=== PATIENT | male | born 1990 | race Caucasian/White ===

== ENCOUNTER 2020-12-11 15:55 | Outpatient (REF) | payer MEDICAID, SELFPAY | END 2020-12-11 15:56 | disposition home or self-care (01) | LOC: HO.LAB 15:55 | PROVIDERS: Visit Provider Internal Medicine | DX: Z20.822 Contact with and (suspected) exposure to COVID-19 (principal) | CPT/HCPCS: 36415; C9803; U0003; U0005 ==

== ENCOUNTER 2021-11-26 14:14 | Outpatient (REF) | payer MEDICAID, SELFPAY ==
[2021-11-26 14:36] LABS: Binax Internal Control QC Valid; Binax Now Covid-19 Ag Negative (Negative)
== END 2021-11-26 14:15 | disposition home or self-care (01) ==
LOC: HO.LAB 14:14
PROVIDERS: Visit Provider Internal Medicine
DX: Z20.822 Contact with and (suspected) exposure to COVID-19 (principal)
CPT/HCPCS: C9803

== ENCOUNTER 2022-03-19 15:03 | Outpatient (REF) | payer MEDICAID, SELFPAY ==
--- NOTE | ~2022-03-19 | XR_ITS ---
EXAMINATION: XR LUMBOSACRAL SPINE CLINICAL INFORMATION: No back pain COMPARISON: None TECHNIQUE: Three views of the lumbosacral spine. FINDINGS: There is normal lumbar lordosis. The vertebral heights, alignment and disc heights are normal. No visible acute fracture, dislocation or subluxation seen no lytic or sclerotic process seen. The paravertebral soft tissues are normal. The SI joints are symmetrical. XR/XR lumbar spine 2-3V IMPRESSION: Unremarkable chest exam.
[2022-03-19 15:26] LABS: MANUAL DIFF FLAG NO
[2022-03-19 15:41] LABS: Basophils Absolute Auto 0.1 X10*3/uL (0.0-0.2); Basophils Percent Auto 0.7 % (0-2); Eosinophils Absolute Auto 0.4 X10*3/uL (0.0-0.4); Eosinophils Percent Auto 4.1 % (0-4); Hematocrit 39.2 % (42.0-52.0); Hemoglobin 13.6 g/dl (14.0-18.0); Imm Gran Abs Auto 0.04 X10*3/uL (0.00-0.03); Imm Gran Pct Auto 0.4 % (0.0-0.4); Lymphocytes Absolute Auto 3.1 X10*3/uL (1.2-4.9); Mean Corpuscular HGB Conc 34.7 g/dl (31.0-36.0); Mean Corpuscular Hemoglobin 29.5 pg (27.0-33.0); Mean Platelet Volume 9.5 fL (9.4-12.4); Monocytes Absolute Auto 0.9 X10*3/uL (0.1-1.2); Monocytes Percent Auto 8.6 % (2-11); Neutrophils Absolute Auto 5.5 x10*3/uL (2.0-8.3); Neutrophils Percent Auto 55.2 % (45-73); Platelet Count 245 X10*3/uL (160-400); Red Blood Count 4.61 X10*6/uL (4.60-5.80); Red Cell Distribution Width 12.9 % (11.0-16.0); White Blood Count 9.9 X10*3/uL (4.8-10.8)
[2022-03-19 16:12] LABS: Alanine Aminotransferase 36 U/L (0-40); Albumin Level 4.3 g/dL (3.5-5.0); Alkaline Phosphatase 86 U/L (39-117); Anion Gap 12 (12-20); Aspartate Amino Transferase 23 U/L (5-37); Bilirubin Direct < 0.2 mg/dL (0.0-0.5); Bilirubin Total 0.4 mg/dL (0.0-1.0); Blood Urea Nitrogen 14 mg/dL (9-16); Calcium 9.9 mg/dL (8.4-10.2); Carbon Dioxide 26 mmol/L (22-29); Chloride 107 mmol/L (96-108); Cholesterol 196 mg/dL; Estimated Glomerular Filt Rate > 60; Glucose Random 82 mg/dL (60-115); HDL Cholesterol 31 mg/dL; LDL Cholesterol Calculated 137 mg/dl; Potassium 4.8 mmol/L (3.3-5.1); Sodium 140 mmol/L (135-145); Total Protein 7.6 g/dL (6.5-8.0); Triglycerides 142 mg/dL
[2022-03-20 07:47] LABS: ~HepC Num1 0.08 S/CO (0.00-0.79); ~Hepatitis C Antibody Nonreactive (Nonreactive)
[2022-03-20 08:00] LABS: Hepatitis A Antibody IgG Nonreactive (Nonreactive); ~Hepatitis A Antibody IgG 0.36 S/CO (0.00-0.99)
[2022-03-20 09:46] LABS: HBS Num1 > 1000.00 mIU/mL (0-7.99); HIV AB/AG Nonreactive (Nonreactive); HIV Num 1 0.06 S/CO (0.00-0.99); Hepatitis B Surface Antigen Negative (Negative); ~Hepatitis B Surface Antibody REACTIVE (Nonreactive)
[2022-03-20 10:33] LABS: CT PCR NOT DETECTED (Not Detect.); NG PCR NOT DETECTED (Not Detect.)
[2022-03-20 12:47] LABS: Syphilis Screen Nonreactive (Nonreactive)
== END 2022-03-19 15:04 | disposition home or self-care (01) ==
LOC: HO.LAB 15:03
PROVIDERS: PCP Internal Medicine Geriatric Medicine; Visit Provider Internal Medicine Geriatric Medicine
DX: Z00.00 Encounter for general adult medical examination without abnormal findings (principal); Z11.4 Encounter for screening for human immunodeficiency virus [HIV]; Z11.3 Encounter for screening for infections with a predominantly sexual mode of transmission; Z13.1 Encounter for screening for diabetes mellitus; Z13.220 Encounter for screening for lipoid disorders; F19.10 Other psychoactive substance abuse, uncomplicated; M54.50 Low back pain, unspecified
CPT/HCPCS: 72100; 80048; 80061; 80076; 85025; 86706; 86708; 86780; 86803; 87340; 87389; 87491; 87591

== ENCOUNTER 2022-07-02 15:58 | Outpatient (REF) | payer MEDICAID, SELFPAY ==
[2022-07-02 17:10] LABS: Hematocrit 39.4 % (42.0-52.0); Hemoglobin 13.7 g/dl (14.0-18.0); Mean Corpuscular HGB Conc 34.8 g/dl (31.0-36.0); Mean Corpuscular Hemoglobin 29.5 pg (27.0-33.0); Mean Corpuscular Volume 84.9 fL (80.0-98.0); Mean Platelet Volume 9.4 fL (9.4-12.4); Platelet Count 273 X10*3/uL (160-400); Red Blood Count 4.64 X10*6/uL (4.60-5.80); White Blood Count 10.1 X10*3/uL (4.8-10.8)
[2022-07-02 17:33] LABS: Alanine Aminotransferase 49 U/L (0-40); Albumin Level 4.5 g/dL (3.5-5.0); Alkaline Phosphatase 93 U/L (39-117); Anion Gap 13 (12-20); Aspartate Amino Transferase 21 U/L (5-37); Bilirubin Total 0.3 mg/dL (0.0-1.0); Blood Urea Nitrogen 15 mg/dL (9-16); Calcium 9.5 mg/dL (8.4-10.2); Carbon Dioxide 27 mmol/L (22-29); Chloride 106 mmol/L (96-108); Estimated Glomerular Filt Rate > 60; Glucose Random 134 mg/dL (60-115); Iron 50 mcg/dL (45-160); Percent Iron Saturation 13 % (15-50); Potassium 4.2 mmol/L (3.3-5.1); Sodium 142 mmol/L (135-145); Total Iron Binding Capacity 377 mcg/dL (228-428); Total Protein 7.4 g/dL (6.5-8.0); Unsaturated Iron Binding 327 ug/dL
[2022-07-02 17:54] LABS: Ferritin 73 ng/mL (20-250)
[2022-07-03 06:10] LABS: Folate 16.8 ng/mL (> or = 4.0); Vitamin B12 1199 pg/mL (200-900)
== END 2022-07-02 15:59 | disposition home or self-care (01) ==
LOC: HO.LAB 15:58
PROVIDERS: PCP Internal Medicine Geriatric Medicine; Visit Provider Internal Medicine Geriatric Medicine
DX: B35.1 Tinea unguium (principal); B35.3 Tinea pedis; D64.9 Anemia, unspecified
CPT/HCPCS: 36415; 80053; 82607; 82728; 82746; 83540; 85027

== ENCOUNTER 2024-03-23 14:51 | Outpatient (REF) | payer MEDICAID, SELFPAY ==
[2024-03-23 16:19] LABS: MANUAL DIFF FLAG NO
[2024-03-23 16:23] LABS: Basophils Absolute Auto 0.1 X10*3/uL (0.0-0.2); Basophils Percent Auto 0.7 % (0-2); Eosinophils Absolute Auto 0.4 X10*3/uL (0.0-0.4); Eosinophils Percent Auto 3.4 % (0-4); Hematocrit 41.3 % (42.0-52.0); Hemoglobin 14.5 g/dl (14.0-18.0); Imm Gran Abs Auto 0.06 X10*3/uL (0.00-0.03); Imm Gran Pct Auto 0.5 % (0.0-0.4); Lymphocytes Absolute Auto 3.5 X10*3/uL (1.2-4.9); Lymphocytes Percent Auto 28.8 % (20-40); Mean Corpuscular HGB Conc 35.1 g/dl (31.0-36.0); Mean Corpuscular Hemoglobin 29.8 pg (27.0-33.0); Mean Corpuscular Volume 84.8 fL (80.0-98.0); Mean Platelet Volume 9.3 fL (9.4-12.4); Monocytes Absolute Auto 0.9 X10*3/uL (0.1-1.2); Monocytes Percent Auto 7.8 % (2-11); Neutrophils Absolute Auto 7.1 x10*3/uL (2.0-8.3); Neutrophils Percent Auto 58.8 % (45-73); Platelet Count 294 X10*3/uL (160-400); Red Blood Count 4.87 X10*6/uL (4.60-5.80); Red Cell Distribution Width 12.9 % (11.0-16.0); White Blood Count 12.1 X10*3/uL (4.8-10.8)
[2024-03-23 17:25] LABS: Alanine Aminotransferase 28 U/L (0-40); Albumin Level 4.4 g/dL (3.5-5.0); Alkaline Phosphatase 85 U/L (39-117); Anion Gap 14 (12-20); Aspartate Amino Transferase 20 U/L (5-37); Bilirubin Total 0.3 mg/dL (0.0-1.0); Blood Urea Nitrogen 14 mg/dL (9-16); Calcium 9.9 mg/dL (8.4-10.2); Carbon Dioxide 25 mmol/L (22-29); Chloride 107 mmol/L (96-108); Estimated Glomerular Filt Rate > 60; Glucose Random 82 mg/dL (60-115); Sodium 142 mmol/L (135-145); Total Protein 7.6 g/dL (6.5-8.0)
[2024-03-24 08:20] LABS: HIV AB/AG Nonreactive (Nonreactive); HIV Num 1 0.05 S/CO (0.00-0.99); ~HepC Num1 0.28 S/CO (0.00-0.79); ~Hepatitis C Antibody Nonreactive (Nonreactive)
[2024-03-24 11:33] LABS: RPR Rapid Plasma Reagin NON-REACTIVE (NON-REACTIVE)
== END 2024-03-23 14:52 | disposition home or self-care (01) ==
LOC: HO.HHCL 14:51
PROVIDERS: Visit Provider Internal Medicine Geriatric Medicine
DX: Z00.00 Encounter for general adult medical examination without abnormal findings (principal); Z11.3 Encounter for screening for infections with a predominantly sexual mode of transmission
CPT/HCPCS: 36415; 80053; 85025; 86592; 86803; 87389

== ENCOUNTER 2024-03-25 17:14 | Emergency (ER) | payer MEDICAID, SELFPAY ==
--- NOTE | 2024-03-25 | ECG_ITS ---
Test Reason : CP Blood Pressure : / mmHG Vent. Rate : 101 BPM Atrial Rate : 101 BPM P-R Int : 148 ms QRS Dur : 084 ms QT Int : 316 ms P-R-T Axes : 066 019 009 degrees QTc Int : 409 ms Sinus tachycardia Otherwise normal ECG When compared with ECG of 24-FEB-2018 19:12, No significant change was found Referred By: Generic ED Physician Electronically Signed By:Salvatore Walker
--- NOTE | ~2024-03-25 | XR_ITS ---
EXAMINATION: XR CHEST CLINICAL INFORMATION: Chest pain. Cough. COMPARISON: Chest radiograph dated 06/13/2020. TECHNIQUE: 2 views of the chest were obtained. FINDINGS: The trachea is in normal anatomic position. The heart is normal in size. There is no pleural effusion. No pneumothorax. No consolidation. No acute osseous abnormality. XR/XR chest 2V IMPRESSION: No acute cardiopulmonary disease.
[2024-03-25 17:23] VITALS: BP 120/73; PULSE 96; RESP 18; TEMP 36.6; O2SAT 99; BMI 28.5
--- NOTE | 2024-03-25 17:23 | ED_ITS ---
HPI - General Adult General Chief complaint: Upper Respiratory Symptoms Stated complaint: N/V/D, chest pain, dry cough Time Seen by Provider: 03/25/24 18:11 Source: patient Mode of arrival: ambulatory Limitations: no limitations History of Present Illness ED Provider: Beatriz Santizo PA-C HPI narrative: 34-year-old male with no significant medical history presents the ER for evaluation of 2 days of feeling unwell. Patient reports that 2 days ago he started with a dry cough, fever, chills. He states yesterday he started having worsening cough associated with diffuse chest pains. He started vomiting. He is also having loose stools. No abdominal pain. He was able to tolerate soup today. He states has ongoing cough and chest discomfort. No known sick contacts at home. Denies any lower extremity swelling. MD complaint: Chest pain, cough, vomiting Onset (ago): day(s) (2) Location: head, chest and abdomen Radiation: non-radiation Severity: moderate Quality: aching Pain Consistency: intermittent Relieving factors: none Associated symptoms: chest pain, cough, fever/chills, headaches, loss of appetite, malaise, nausea/vomiting and weakness Treatments prior to arrival: none Related Data Previous Rx's ?Medication ?Instructions ?Recorded hydrocodone-homatropine 5 mg-1.5 5 ml PO Q6H PRN cough #60 mL 03/25/24 mg/5 mL (5 mL) oral syrup (Hycodan) ibuprofen 600 mg tablet 600 mg PO Q8H PRN fever or pain 03/25/24 #14 tabs Allergies Allergy/AdvReac Type Severity Reaction Status Date / Time No Known Allergies Allergy Verified 03/25/24 17:26 Review of Systems 2 Review of Systems: Yes all other systems are reviewed and are negative [facility] Social History Social History Advance Directives: No Advance Directives Information Provided: No Do you have a plan to hurt others: No Plan Physical Exam ED Vital Signs: Vital Signs - 24 hr 03/25/24 17:23 03/25/24 18:56 03/25/24 18:59 Temperature 97.9 F 98.5 F 98.5 F Pulse Rate 96 84 84 Respiratory Rate 18 16 16 Blood Pressure 120/73 136/86 136/86 Pulse Oximetry 99 99 99 Oxygen Delivery Method Room Air Room Air Room Air BMI result Body Mass Index 28.5 Appearance: Alert. Oriented X3. No acute distress. Head: normocephalic, atraumatic. Eyes: Pupils equal, round and reactive to light. ENT: Pharynx normal. No tonsillar swelling or exudate. Neck: Normal inspection. Neck supple. CVS: Normal heart rate and rhythm. Pulses normal. Respiratory: No respiratory distress. Breath sounds normal. Abdomen: Soft and nontender. +BS x4 Skin: Skin warm and dry. Normal skin color. Normal skin turgor. No rashes. Extremities: No lower extremity edema. No joint swelling. Neuro/psych: Oriented X 3. No motor deficit. No sensory deficit. CN II-XII intact. Normal speech and cognition. Course Course Course Narrative: This is a Rapid Medical Examination (RME) performed by Lj Ferrari PA-C in triage. Full HPI, ROS, assessment and treatment plan per primary provider in the Main ED. 34 yo male here for eval of N/V/D, chest pain, dry cough, subjective fever, chills x2 days. no known sick contacts. lungs clear. well appearing. rrr. Plan: labs, trop, ekg, cxr, viral serology ordered Medications Administered Discontinued Medications Generic Name Dose Route Start Last Admin Trade Name Freq PRN Reason Stop Dose Admin Acetaminophen 975 mg 03/25/24 18:38 03/25/24 18:48 Acetaminophen 325 Mg Tablet PO 03/25/24 18:39 975 mg ONCE ONE Administration Guaifenesin/Codeine Phosphate 10 ml 03/25/24 18:38 03/25/24 18:48 Guaifen/Codeine Sf 200/20/10ml 10 Ml Liquid PO 03/25/24 18:39 10 ml ONCE ONE Administration Ketorolac Tromethamine 30 mg 03/25/24 18:38 03/25/24 18:48 Ketorolac Tromethamine 30 Mg/Ml Vial IM 03/25/24 18:39 30 mg ONCE ONE Administration Procedures Smoking Cessation Time Spent Discussing Smoking Cessation w/Patient (min): 4 Patient Acknowledges Need for Cessation: Yes Additional Comments: discussed patches and gum. patient will try patches. does not want to try other oral meds, he will f/u with his PCP if he decides he wants medication to assist in smoking cessation Medical Decision Making Medical Decision Making MDM Narrative: 34-year-old male presents to the ER for evaluation of dry cough with associated chest pains, chills, fever, nausea and vomiting for the last 2 days. On arrival to the ER patient's vital signs are stable. His physical exam is benign. He has a mild leukocytosis on lab work, likely due to vomiting. Has not vomited since this morning. His abdominal exam is benign in his lungs are clear. His viral studies are negative for COVID, flu, RSV. His chest x-ray is clear, no evidence of pneumonia. EKG with sinus tachycardia, no ischemic changes. Doubt cardiac etiology. Chest pain is most likely musculoskeletal due to coughing. Patient was given Toradol and cough syrup here. At this time he is stable for discharge home with supportive care for likely viral infection. Patient expressed understanding and is stable for discharge home Differential Diagnosis Differential Diagnoses: The differential diagnosis associated with the presentation includes COVID, flu, RSV, pneumonia, viral gastroenteritis, viral syndrome, doubt cardiac etiology of his chest pain Lab Data [facility] Lab Attestation statement: I reviewed the patient's lab results. mild leukocytosis, no major metabolic derangement 03/25/24 17:33 03/25/24 17:33 Labs: Lab Results 03/25/24 Range/Units 17:33 WBC 11.9 H (4.8-10.8) X10*3/uL RBC 4.87 (4.60-5.80) X10*6/uL Hgb 14.8 (14.0-18.0) g/dl Hct 41.1 L (42.0-52.0) % MCV 84.4 (80.0-98.0) fL MCH 30.4 (27.0-33.0) pg MCHC 36.0 (31.0-36.0) g/dl RDW 12.7 (11.0-16.0) % Plt Count 244 (160-400) X10*3/uL MPV 8.8 L (9.4-12.4) fL Immature Gran % (Auto) 0.4 (0.0-0.4) % Neut % (Auto) 56.6 (45-73) % Lymph % (Auto) 25.1 (20-40) % Mcculloch % (Auto) 12.0 H (2-11) % Eos % (Auto) 5.2 H (0-4) % Baso % (Auto) 0.7 (0-2) % Lymph # (Auto) 3.0 (1.2-4.9) X10*3/uL Mcculloch # (Auto) 1.4 H (0.1-1.2) X10*3/uL Eos # (Auto) 0.6 H (0.0-0.4) X10*3/uL Baso # (Auto) 0.1 (0.0-0.2) X10*3/uL Abs Immat Gran (auto) 0.05 H (0.00-0.03) X10*3/uL Absolute Neuts (auto) 6.7 (2.0-8.3) x10*3/uL Absolute Nucleated RBC 0.000 (0.0-0.012) X10*3/uL Nucleated RBC % (auto) 0.0 (0.0-0.2) /100WBC Sodium 140 (135-145) mmol/L Potassium 3.8 (3.3-5.1) mmol/L Chloride 107 (96-108) mmol/L Carbon Dioxide 23 (22-29) mmol/L Anion Gap 14 (12-20) BUN 13 (9-16) mg/dL Creatinine 0.85 (0.5-1.4) mg/dL Estim Creat Clear Calc 141.1 Estimated GFR > 60 Random Glucose 106 (60-115) mg/dL Calcium 9.6 (8.4-10.2) mg/dL Magnesium 2.0 (1.6-2.6) mg/dL Total Bilirubin 0.3 (0.0-1.0) mg/dL AST 19 (5-37) U/L ALT 27 (0-40) U/L Alkaline Phosphatase 85 (39-117) U/L Troponin I High Sens < 2.7 (<3.5-35.0) ng/L Total Protein 7.3 (6.5-8.0) g/dL Albumin 4.1 (3.5-5.0) g/dL Lipase 14 (8-78) U/L Influenza Type A (PCR) NEGATIVE (Negative) Influenza Type B (PCR) NEGATIVE (Negative) RSV RNA Qual (PCR) NEGATIVE (Negative) SARS-CoV-2 RNA (RT-PCR) NEGATIVE (Negative) Independent Interpretation I performed an independent interpretation of an: EKG and Plain X-Ray Interpretation: chest x-ray without any infiltrate or evidence of pneumonia EKG was sinus tachycardia, ventricular rate 101 beats per minute, normal QTC, normal DC interval, no ST segment elevations or depressions. Radiology Impression Discussion of test interpretation with radiology: I have reviewed the radiologist's reading. Radiologist Impression: EXAMINATION: XR CHEST CLINICAL INFORMATION: Chest pain. Cough. COMPARISON: Chest radiograph dated 06/13/2020. TECHNIQUE: 2 views of the chest were obtained. FINDINGS: The trachea is in normal anatomic position. The heart is normal in size. There is no pleural effusion. No pneumothorax. No consolidation. No acute osseous abnormality. XR/XR chest 2V IMPRESSION: No acute cardiopulmonary disease. External Record Review External record reviewed: Prior outpatient labs Prescription Management I considered prescription management with: Pain Medication and Antibiotic Discharge Plan Discharge Clinical Impression: Viral infection Patient Disposition: Home, Self-Care Instructions: Viral Syndrome (ED) Additional Instructions: Your lab work today was unremarkable. You tested negative for COVID, flu, RSV. Her chest x-ray did not show any evidence of pneumonia. Your symptoms most likely viral, treatment is rest and supportive care. Take the prescribed Cough medication as needed for cough, it has a narcotic in it and will help you sleep. Do not drive after taking this medication. Take ibuprofen every [id number] hours as needed for fever and pain Recommend adding DayQuil and NyQuil. Rest and drink plenty of fluids. If you develop new or worsening symptoms call 911 or come back to the ER for further evaluation. Prescriptions: New hydrocodone-homatropine [Hycodan] 5-1.5 mg/5 mL (5 mL) syrup 5 ml PO Q6H PRN (Reason: cough) Qty: 60 0RF Rx Instructions: Partial Fill upon patient request. ibuprofen 600 mg tablet 600 mg PO Q8H PRN (Reason: fever or pain) Qty: 14 0RF Referrals: Name,MD Paul [Primary Care Provider] - Stand Alone Forms: Work/School Release Interventions: ED Discharge Assessment Last Done: 03/25/24 18:59 Discharge Date/Time: 03/25/24 19:00 Print Language: Mongolian
[2024-03-25 17:38] LABS: MANUAL DIFF FLAG NO
--- OUTSIDE RECORDS SUMMARY | 2024-03-25 17:38 | XMS_ITS | Continuity of Care Document ---
Author Organization [facility] Address [address] [place] [address]- Care Team Providers Care Cereal Maker Name Role Phone Not on Staff, PCP Primary Care Physician Unavail able Encounter [facility] Date(s): 02/04/22 - 03/06/22 [facility] [address] [place] [address]- [place] Allergies, Adverse Reactions, Alerts No Known Allergies Medications Prilosec 20 mg oral enteric coated capsule 1 capsule = 20 mg, By Mouth, Daily, # 30 capsule, 0 Refills Start Date: 08/02/09 Status: Ordered Reglan 10 mg oral tablet = 10 mg, By Mouth, 3 times a day before meals and bedtime, # 15 capsule, 0 Refills Start Date: 08/02/09 Stop Date: 09/01/09 Status: Ordered
[2024-03-25 17:39] LABS: Basophils Absolute Auto 0.1 X10*3/uL (0.0-0.2); Basophils Percent Auto 0.7 % (0-2); Eosinophils Absolute Auto 0.6 X10*3/uL (0.0-0.4); Eosinophils Percent Auto 5.2 % (0-4); Hematocrit 41.1 % (42.0-52.0); Hemoglobin 14.8 g/dl (14.0-18.0); Imm Gran Abs Auto 0.05 X10*3/uL (0.00-0.03); Imm Gran Pct Auto 0.4 % (0.0-0.4); Lymphocytes Percent Auto 25.1 % (20-40); Mean Corpuscular Hemoglobin 30.4 pg (27.0-33.0); Mean Corpuscular Volume 84.4 fL (80.0-98.0); Mean Platelet Volume 8.8 fL (9.4-12.4); Monocytes Absolute Auto 1.4 X10*3/uL (0.1-1.2); Neutrophils Absolute Auto 6.7 x10*3/uL (2.0-8.3); Neutrophils Percent Auto 56.6 % (45-73); Platelet Count 244 X10*3/uL (160-400); Red Blood Count 4.87 X10*6/uL (4.60-5.80); Red Cell Distribution Width 12.7 % (11.0-16.0); White Blood Count 11.9 X10*3/uL (4.8-10.8)
[2024-03-25 17:58] LABS: Alanine Aminotransferase 27 U/L (0-40); Albumin Level 4.1 g/dL (3.5-5.0); Alkaline Phosphatase 85 U/L (39-117); Anion Gap 14 (12-20); Aspartate Amino Transferase 19 U/L (5-37); Bilirubin Total 0.3 mg/dL (0.0-1.0); Blood Urea Nitrogen 13 mg/dL (9-16); Calcium 9.6 mg/dL (8.4-10.2); Carbon Dioxide 23 mmol/L (22-29); Chloride 107 mmol/L (96-108); Creatinine Clr Calc Pharmacy 141.1; Estimated Glomerular Filt Rate > 60; Glucose Random 106 mg/dL (60-115); Lipase 14 U/L (8-78); Potassium 3.8 mmol/L (3.3-5.1); Sodium 140 mmol/L (135-145); Total Protein 7.3 g/dL (6.5-8.0)
[2024-03-25 18:06] LABS: Troponin-I High Sensitivity < 2.7 ng/L (<3.5-35.0)
[2024-03-25 18:16] LABS: Influenza A PCR NEGATIVE (Negative); Influenza B PCR NEGATIVE (Negative); Resp Syncy Virus RNA Qual PCR NEGATIVE (Negative); SARS COV2 PCR INHOUSE NEGATIVE (Negative)
[2024-03-25] MEDS: Acetaminophen 325 MG TABLET 975 MG PO (18:48)
[2024-03-25] MEDS: guaiFEN/Codeine SF 200/20/10ML 10 ML LIQUID PO (18:48)
[2024-03-25] MEDS: Ketorolac Tromethamine 30 MG/ML VIAL IM (18:48)
[2024-03-25 18:56] VITALS: BP 136/86; PULSE 84; RESP 16; TEMP 36.9; O2SAT 99
--- NOTE | 2024-03-25 18:58 | PC.NURSE ---
Reviewed discharge instructions with pt, pt verbalized understanding, no sign on respiratory distress or chest pain, no sign of distress.
[2024-03-25 18:59] VITALS: BP 136/86; PULSE 84; RESP 16; TEMP 36.9; O2SAT 99
== END 2024-03-25 19:00 | disposition home or self-care (01) ==
PROVIDERS: Physician Assistant Medical; Emergency Provider Emergency Medicine; PCP Internal Medicine Geriatric Medicine
DX: B34.9 Viral infection, unspecified (principal); R07.9 Chest pain, unspecified; R05.9 Cough, unspecified; R11.10 Vomiting, unspecified; R68.83 Chills (without fever)
CPT/HCPCS: 0241U; 36415; 71046; 80053; 83690; 83735; 84484; 85025; 93005; 96372; 99284; J1885

== ENCOUNTER → 2024-03-25 17:18 | Outpatient (BNV) | payer MEDICAID, SELFPAY | PROVIDERS: Emergency Provider Emergency Medicine; PCP Internal Medicine Geriatric Medicine; Visit Provider Internal Medicine Cardiovascular Disease | DX: R07.9 Chest pain, unspecified (principal) | CPT/HCPCS: 93010 ==

== ENCOUNTER 2024-07-14 17:36 | Emergency (ER) | payer SELFPAY ==
--- NOTE | ~2024-07-14 | CT_ITS ---
EXAMINATION: CT HEAD WITHOUT CONTRAST CLINICAL INFORMATION: Severe headache. COMPARISON: CT dated 03/03/2020. TECHNIQUE: Contiguous axial imaging was performed from the skullbase to vertex without intravenous administration of contrast. This CT examination was performed using dose optimization techniques as appropriate, variously including the following: *Automated exposure control *Adjustment of mA and/or kV according to patient size (this includes techniques or standardized protocols for targeted exams where dose is matched to indication/reason for exam; i.e. extremities or head) *Use of iterative reconstruction technique DLP: 704 mGy-cm. FINDINGS: There is no evidence of acute intracranial hemorrhage or territorial infarction. No abnormal mass effect or midline shift is seen. Kebede to white matter differentiation is well preserved. No extra-axial fluid collections are identified. The ventricles are normal in size. There is no abnormal attenuation within the brain parenchyma. The osseous structures and soft tissues are normal. The mastoid air cells are well aerated. There is mild to moderate ethmoid sinus mucosal thickening bilaterally. CT/CT head/brain wo IV con IMPRESSION: No acute intracranial pathology. Mild to moderate ethmoid sinus mucosal thickening. Electronically signed by: Ru Carnes MD 07/14/2024 06:26 PM EDT
[2024-07-14 17:38] VITALS: BP 142/77; PULSE 99; RESP 18; TEMP 37.2; O2SAT 97
--- NOTE | 2024-07-14 17:38 | ED_ITS ---
HPI - General Adult General Chief complaint: Headache Stated complaint: headache x3 days Time Seen by Provider: 07/14/24 19:51 Source: patient Mode of arrival: ambulatory Limitations: no limitations History of Present Illness ED Provider: jeannette BOOKER narrative: Patient with history of hypertension complaining of headache for last few days feels like a band around his head awaiting slight light sensitivity no nausea no vomiting blood pressure 142/77 no history of migraine no fever no neck pain Related Data Previous Rx's ?Medication ?Instructions ?Recorded hydrocodone-homatropine 5 mg-1.5 5 ml PO Q6H PRN cough #60 mL 03/25/24 mg/5 mL (5 mL) oral syrup (Hycodan) ibuprofen 600 mg tablet 600 mg PO Q8H PRN fever or pain 03/25/24 #14 tabs jyriwygbls-miztvmhakkeon-ssflgpzi 1 tab PO Q6H PRN haeadace #20 tabs 07/14/24 50 mg-325 mg-40 mg tablet Allergies Allergy/AdvReac Type Severity Reaction Status Date / Time No Known Allergies Allergy Verified 07/14/24 17:41 Review of Systems Review of Systems: Yes all other systems are reviewed and are negative [facility] Social History Social History Smoked in Last 30 Days: Yes Use of substances other than those prescribed or required for medical reasons: Yes Substance Use Type: Crack/Cocaine Last Used Substance: Days (ago) Advance Directives: No Advance Directives Information Provided: No Physical Exam ED Vital Signs: Vital Signs - 24 hr 07/14/24 17:38 07/14/24 19:53 07/14/24 21:34 Temperature 98.9 F 97.6 F Pulse Rate 99 69 70 Respiratory Rate 18 16 18 Blood Pressure 142/77 H 103/56 L 115/57 L Pulse Oximetry 97 100 98 Oxygen Delivery Method Room Air Room Air Room Air BMI result Body Mass Index 30.0 Appearance: Alert. Oriented X3. No acute distress. Eyes: PERRLA, No Nystagmus ENT: Pharynx normal. Oral Mucosa moist temporal artery nontender Neck: Normal inspection. Neck supple. CVS: Normal heart rate and rhythm. Pulses normal. Respiratory: No respiratory distress. Equal air entry bilateral, no wheezing/rales/rhonchi Abdomen: Soft and nontender. Bowel sounds are present, no mass palpable, no CVA tenderness Skin: Skin warm and dry. Normal skin color. Normal skin turgor. Extremities: No lower extremity edema. No calf tenderness Neuro: Oriented X 3. No motor deficit. No sensory deficit.No cerebellar signs , cranial nerves II-XII intact Course Course Course Narrative: This is an RME done by JUDY Gomez: Additional HPI, ROS, PE not included below will be deferred to primary provider. 34-year-old male with history of hypertension presents with a 3 day history of 8/10 headaches. Denies trauma denies recent illness. Denies nausea vomiting photophobia. Denies history of migraines Appearance: Alert.? Oriented X3.? No acute cardiopulmonary distress distress.? Head: Normocephalic, atraumatic Neck: Normal inspection.? Neck supple.? CVS: Pulses normal.? Respiratory: No respiratory distress.? Skin: ? Normal skin color. Neuro: Oriented X 3.? No motor deficit.? No sensory deficit. Medications Administered Discontinued Medications Generic Name Dose Route Start Last Admin Trade Name Freq PRN Reason Stop Dose Admin Ketorolac Tromethamine 30 mg 07/14/24 19:35 07/14/24 19:39 Ketorolac Tromethamine 30 Mg/Ml Vial IM 07/14/24 19:36 30 mg ONCE ONE Administration Sumatriptan Succinate 6 mg 07/14/24 20:12 07/14/24 20:24 Sumatriptan Succinate 6 Mg/0.5 Ml Vial SUBCUT 07/14/24 20:13 6 mg ONCE ONE Administration Medical Decision Making Medical Decision Making [facility] Narrative: Patient's CT scan negative for acute feeling much better after Imitrex headaches almost gone will discharge patient home Differential Diagnosis Differential Diagnoses: The differential diagnosis associated with the presentation includes Migraine headache slight tension headache/internal injury Independent Interpretation I performed an independent interpretation of an: CT Scan Radiology Impression Discussion of test interpretation with radiology: I have reviewed the radiologist's reading. Discharge Plan Discharge Clinical Impression: Migraine Patient Disposition: Home, Self-Care Instructions: Migraine Headache (ED) Additional Instructions: Your headache is likely for migraine Take Fioricet 1 tablet every 6 hours as needed for headache Follow with your PCP as needed Prescriptions: New nyikwbqfov-axqicjoggcdqf-viaj 50-325-40 mg tablet 1 tab PO Q6H PRN (Reason: haeadace) Qty: 20 0RF No Action hydrocodone-homatropine [Hycodan] 5-1.5 mg/5 mL (5 mL) syrup 5 ml PO Q6H PRN (Reason: cough) Qty: 60 0RF Rx Instructions: Partial Fill upon patient request. ibuprofen 600 mg tablet 600 mg PO Q8H PRN (Reason: fever or pain) Qty: 14 0RF Interventions: ED Discharge Assessment Last Done: 07/14/24 21:34 Discharge Date/Time: 07/14/24 21:35 Print Language: Upper Sorbian
[2024-07-14] MEDS: Ketorolac Tromethamine 30 MG/ML VIAL IM (19:39)
--- NOTE | 2024-07-14 19:49 | PC.NURSE ---
pt from waiting room, assume care of pt at this time
[2024-07-14 19:53] VITALS: BP 103/56; PULSE 69; RESP 16; O2SAT 100
[2024-07-14] MEDS: SUMAtriptan succinate 6 MG/0.5 ML VIAL SUBCUT (20:24)
[2024-07-14 21:34] VITALS: BP 115/57; PULSE 70; RESP 18; TEMP 36.4; O2SAT 98
== END 2024-07-14 21:35 | disposition home or self-care (01) ==
PROVIDERS: Emergency Provider Internal Medicine; PCP Internal Medicine Geriatric Medicine
DX: G43.909 Migraine, unspecified, not intractable, without status migrainosus (principal)
CPT/HCPCS: 70450; 96372; 99284; J1885; J3030